=== PATIENT | female | born 1985 | race Caucasian/White ===

== ENCOUNTER → 2016-07-22 | Outpatient (CLI) | payer OTHER ==
--- NOTE | 2016-07-22 17:05 | DX ---
PA and Lateral Chest - July 22, 2016 Indication: Cough for one month. New left-sided pain. Comparison: None Findings: The lungs are well aerated and clear. No pneumothorax, consolidation, or effusion. Heart si ze normal. No discernible rib fracture or bone lesion to explain left-sided pain. Impression: Clear lungs. No rib fracture or effusion.
== END ==
LOC: FLAB 16:41
PROVIDERS: ATTEND Family Medicine
DX: R05 Cough (principal); R07.81 Pleurodynia